=== PATIENT | male | born 1935 | race Caucasian/White ===

== ENCOUNTER 2021-03-07 09:40 | Outpatient (CLI) | payer MEDICARE, BC ==
[2021-03-07 20:06] LABS: SARS-CoV-2 PCR by NAA Not Detected (NotDetected)
== END 2021-03-07 09:41 | disposition home or self-care (01) ==
LOC: CSHLAB 09:40
PROVIDERS: ATTEND Physician Assistant Medical
DX: Z20.822 Contact with and (suspected) exposure to COVID-19 (principal)
CPT/HCPCS: U0003; U0005

== ENCOUNTER 2023-03-12 12:37 | Outpatient (CLI) | payer MEDICARE, BC | END 2023-03-12 12:38 | disposition home or self-care (01) | LOC: CSHCP 12:37 | PROVIDERS: ATTEND Internal Medicine Cardiovascular Disease | DX: I35.0 Nonrheumatic aortic (valve) stenosis (principal); J44.9 Chronic obstructive pulmonary disease, unspecified | CPT/HCPCS: 94060; 94726; 94729; 94760 ==